=== PATIENT | female | born 1955 | race African-American/Black ===

== ENCOUNTER 2016-07-20 16:57 | Emergency (ER) | payer MEDICARE, SELFPAY ==
[2016-07-20 17:12] VITALS: TEMP 98.1; BMI 35.4
[2016-07-20] MEDS ORDERED: LORAZEPAM 1 MG TAB PO ONE (17:12)
[2016-07-20] MEDS ORDERED: NS 1,000 ML IV ONE (17:12)
--- NOTE | 2016-07-20 17:31 | EDPRACDOC ---
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 THIS WAS WITNESSED BY HER DAUGHTER. PT CONTINUE TO BE POSTICTAL UPON ARRIVAL. UNAWARE OF WHAT MEDICATION THE PATIENT TAKES FOR HER SEIZURE. PT IS UNDER THE CARE OF DR GUIDRY FOR HER SEIZURES. 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 <Von Marc - Last Filed: 07/20/16 18:24> - History of Present Illness Medications/Treatment 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 Associated Signs & Symptoms: Reports: Aura (WEIRD TASTE IS MOUTH AND NUASEA WITH LEFT SIDED FACIAL PAIN) <Krystal Jama - Last Filed: 07/20/16 18:36> - General Information Chief Complaint: Seizure Stated Complaint: SEIZURE Time Seen by Provider: 07/20/16 17:08 Home Medications: Home Medications Folic Acid 1 mg PO DAILY 10/15/15 Cholecalciferol (Vitamin D3) [Vitamin D3] 1,000 unit PO DAILY 12/16/15 Multivitamin [Multivitamins] 1 cap PO DAILY 12/16/15 Metoprolol Tartrate [Lopressor] 12.5 mg PO BID #60 tablet 12/17/15 Omeprazole [Prilosec] 20 mg PO DAILY 02/13/16 Atorvastatin Calcium [Lipitor] 40 mg PO DAILY@1800 #90 tablet 02/15/16 Gabapentin [Neurontin] 600 mg PO TID 05/05/16 Aspirin (Enteric Coated) [Halfprin] 81 mg PO HS 06/18/16 CYANOCOBALAMIN (Vitamin B-12) [Vitamin B-12] 1,000 mcg IM .MONTHLY 06/18/16 Allergies/Adverse Reactions: Allergies Allergy/AdvReac Type Severity Reaction Status Date / Time Penicillins Allergy Intermediate Edema-Gener Verified 07/20/16 17:14 alized bacitracin Allergy Hives* Verified 07/20/16 17:14 zinc Allergy Hives* Verified 07/20/16 17:14 - Treatment Prior to ED Arrival Reported Medications/Treatment 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 <Tanya Reed - Last Filed: 07/20/16 17:34> - Treatment Prior to ED Arrival Reported Medications/Treatment 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 <Von Marc - Last Filed: 07/20/16 18:24> - Treatment Prior to ED Arrival Reported Medications/Treatment 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 <Krystal Jama - Last Filed: 07/20/16 18:36> ED Past Medical History - History Reviewed Yes Nurses notes reviewed and agree except as marked - Patient Medical History Neurological History: Reports: Cerebrovascular Accident, Seizures Cardiac History: Reports: Coronary Artery Disease, Hypertension, Heart Attack, Cardiac Catheterization (angioplasty and may have had some stents placed but not sure about stents), Hypercholesterolemia Respiratory History: Reports: Asthma (RESOLVED) GI/ History: Reports: Gastroesophageal Reflux (Used to be on Nexium but stopped it), Diverticulosis Musculoskeletal History: Reports: Arthritis (RIGHT WRIST AND SHOULDER) Psychological History: Reports: Anxiety. Denies: Depression, Substance Use Disorder Systemic History: Reports: Cancer (head and neck) Surgical History: Reports: Cardiac Catheterization (angioplasty and may have had some stents placed but not sure about stents), Tonsillectomy/Adnoidectomy, Other (recent tonsillectomy due to recurrent cancer, BTl, multiple cysts from UExt). Denies: Hysterectomy Date of Last Radiation Treatment: 12/2014 - Family Medical History Reports: Hypertension (MOTHER, SIBLINGS), Diabetes, Cancer (ovarian, prostate, colon-mother, breast, throat), Cardiac Disorders (MOTHER, BROTHER). Denies: Stroke - Social Medical History Smoking Status: Never smoker Social History: Denies: Substance Use Disorder <Tanya Reed - Last Filed: 07/20/16 17:34> EDM Review of Systems - Review of Systems ROS Negative Except as Marked: Yes All systems reviewed and were negative except as marked <Tanya Reed - Last Filed: 07/20/16 17:34> - Physical Exam Constitutional: Alert Oriented to: Time, Person, Place Last recorded Vital Signs: Last Vital Signs Temp 98.1 F 07/20/16 17:06 Pulse 79 07/20/16 17:06 Resp 20 07/20/16 17:06 BP 167/106 H 07/20/16 17:06 Pulse Ox 95 07/20/16 17:06 Oxygen Pulse Oxygen Saturation 95 O2 Device Oxygen Flow Rate Fraction of Inspired Oxygen ( FIO2) - HEENT Head: Normal ( normocephalic) Eye Exam: Normal (PERRL, EOMI, Sclera white) Oropharynx: Normal (Pharynx:Moist without exudate,Gums-no swelling) Nose: No Symptoms Reported (septum midline) Neck: Normal (FROM, trachea at midline) - Respiratory/Cardiovascular Respiratory: Normal - CTA (BBS clear to auscultation without adventitious sounds ) Cardiovascular: Normal (RRR without murmur, gallop or rub) - GI Auscultation: Normal (NABS) Palpation: Normal (Soft,No rebound or guarding, non distended) Tenderness: Non tender Martell's Sign: Negative Rectal Exam: Deferred - Musculoskeletal Back: Normal (Non-Tender) Extremities: Normal (Normal tone, Pulses 2+ No cyanosis or edema, FROM) - Integumentary Skin: Normal, Warm, Dry Lymphatics: Normal (no adenopathy) - Neurologic Memory Impaired: Normal Motor Function: Normal (Normal tone, Pulses 2+ No cyanosis or edema, FROM) Cranial Nerve: Normal (CN II-X11 intact sensation, strength 5/5) Cerebellar: Normal Mood Description: Normal Perception: Normal <Tanya Reed - Last Filed: 07/20/16 17:34> - Physical Exam Last recorded Vital Signs: Last Vital Signs Temp 98.1 F 07/20/16 17:06 Pulse 76 07/20/16 18:03 Resp 20 07/20/16 17:13 BP 179/91 07/20/16 18:03 Pulse Ox 98 07/20/16 18:03 Oxygen Pulse Oxygen Saturation 98 O2 Device Oxygen Flow Rate Fraction of Inspired Oxygen ( FIO2) <Von Marc - Last Filed: 07/20/16 18:24> - Physical Exam Last recorded Vital Signs: Last Vital Signs Temp 98.1 F 07/20/16 17:06 Pulse 76 07/20/16 18:03 Resp 20 07/20/16 17:13 BP 179/91 01/11/17 18:03 Pulse Ox 98 07/20/16 18:03 Oxygen Pulse Oxygen Saturation 98 O2 Device Oxygen Flow Rate Fraction of Inspired Oxygen ( FIO2) <Krystal Jama - Last Filed: 07/20/16 18:36> - Differential Diagnosis Seizure - EKG EKG #1 EKG Time: 17:19 -: Yes EKG interpreted by me Rate: bpm: 71 [place]: Normal Rhythm: NSR Block: None Hypertrophy: None ST: Normal <Tanya Reed - Last Filed: 07/20/16 17:34> - Results 07/20/16 17:20 07/20/16 17:20 WBC 5.4 xk/uL (3.8-10.8) 07/20/16 17:20 RBC 5.66 xM/uL (4.20-5.40) H 07/20/16 17:20 Hgb 14.1 g/dL (12.0-16.0) 07/20/16 17:20 Hct 42.7 % (36-47) 07/20/16 17:20 MCV 75 fL (81-99) L 07/20/16 17:20 MCH 24.8 pg (27-32) L 07/20/16 17:20 MCHC 33.0 g/dl (33-36) 07/20/16 17:20 RDW 16.1 % (11.5-14.5) H 07/20/16 17:20 Plt Count 294 xk/uL (130-400) 07/20/16 17:20 MPV 7.6 fL (7.4-10.4) 07/20/16 17:20 Neut % (Auto) 50.1 % (45-76) 07/20/16 17:20 Lymph % (Auto) 37.6 % (17-44) 07/20/16 17:20 [place] % (Auto) 6.7 % (3-10) 07/20/16 17:20 Eos % (Auto) 4.3 % (0-5) 07/20/16 17:20 Baso % (Auto) 1.3 % (0-2) 07/20/16 17:20 Absolute Neuts (auto) 2.70 xk/uL (1.7-8.2) 07/20/16 17:20 Absolute Lymphs (auto) 2.00 xk/uL (0.65-4.75) 07/20/16 17:20 PT 10.4 SEC (9.2-11.2) 07/20/16 17:20 INR 1.0 07/20/16 17:20 APTT 21.7 SEC (22-35) L 07/20/16 17:20 Sodium 140 mEq/L (137-146) 07/20/16 17:20 Potassium 4.0 mEq/L (3.5-5.1) 07/20/16 17:20 Chloride 103 mEq/L (98-107) 07/20/16 17:20 Carbon Dioxide 29 mMOL/L (22-33) 07/20/16 17:20 Anion Gap 12 mEq/L (8-16) 07/20/16 17:20 BUN 10 MG/DL (7-17) 07/20/16 17:20 Creatinine 0.70 MG/DL (0.52-1.04) 07/20/16 17:20 Estimated GFR (MDRD) > 60 mL/min (>=60) 07/20/16 17:20 Glucose 99 MG/DL (70-99) 07/20/16 17:20 Calculated Osmolality 268 MOs/Kg (270-290) L 07/20/16 17:20 Calcium 9.6 MG/DL (8.4-10.2) 07/20/16 17:20 Total Bilirubin 0.9 MG/DL (0.2-1.3) 07/20/16 17:20 AST 24 IU/L (14-36) 07/20/16 17:20 ALT 33 IU/L (9-52) 07/20/16 17:20 Alkaline Phosphatase 130 IU/L (38-126) H 07/20/16 17:20 Creatine Kinase 42 IU/L (30-134) 07/20/16 17:20 Troponin I < 0.01 ng/mL (<.04) 07/20/16 17:20 Baa-S-Jtiqdcfobdx Pept 35 pg/mL (0-900) 07/20/16 17:20 Total Protein 8.0 G/DL (6.3-8.2) 07/20/16 17:20 Albumin 4.0 G/DL (3.5-5.0) 07/20/16 17:20 Urine Color Pale yellow 07/20/16 17:50 Urine Clarity Clear 07/20/16 17:50 Urine pH 6.0 (5.0-8.0) 07/20/16 17:50 Ur Specific [place] 1.010 (1.003-1.035) 07/20/16 17:50 Urine Protein Neg (NEG/TRACE) 07/20/16 17:50 Urine Glucose (UA) Neg (NEGATIVE) 07/20/16 17:50 Urine Ketones Neg (NEGATIVE) 07/20/16 17:50 Urine Occult Blood Neg (NEG/TRACE) 07/20/16 17:50 Urine Nitrite Neg (NEGATIVE) 07/20/16 17:50 Urine Bilirubin Neg (NEGATIVE) 07/20/16 17:50 Urine Urobilinogen <2.0 MG/DL (0-1) 07/20/16 17:50 Ur Leukocyte Esterase Neg (NEGATIVE) 07/20/16 17:50 Urine RBC 0-2 (0-5) 07/20/16 17:50 Urine WBC 0-2 (0-5) 07/20/16 17:50 Ur Epithelial Cells 1+ 07/20/16 17:50 Urine Bacteria Few (NEG/FEW) 07/20/16 17:50 Urine Mucus Occ (NEG/OCC) 07/20/16 17:50 Lab Results 07/20/16 07/20/16 07/20/16 17:50 17:20 17:20 WBC 5.4 RBC 5.66 H Hgb 14.1 Hct 42.7 MCV 75 L MCH 24.8 L MCHC 33.0 RDW 16.1 H Plt Count 294 MPV 7.6 Neut % (Auto) 50.1 Lymph % (Auto) 37.6 [place] % (Auto) 6.7 Eos % (Auto) 4.3 Baso % (Auto) 1.3 Absolute Neuts (auto) 2.70 Absolute Lymphs (auto) 2.00 PT 10.4 INR 1.0 APTT 21.7 L Sodium Potassium Chloride Carbon Dioxide Anion Gap BUN Creatinine Estimated GFR (MDRD) Glucose Calculated Osmolality Calcium Total Bilirubin AST ALT Alkaline Phosphatase Creatine Kinase Troponin I Cli-Y-Toatphaypua Pept Total Protein Albumin Urine Color Pale yellow Urine Clarity Clear Urine pH 6.0 Ur Specific [place] 1.010 Urine Protein Neg Urine Glucose (UA) Neg Urine Ketones Neg Urine Occult Blood Neg Urine Nitrite Neg Urine Bilirubin Neg Urine Urobilinogen <2.0 Ur Leukocyte Esterase Neg Urine RBC 0-2 Urine WBC 0-2 Ur Epithelial Cells 1+ Urine Bacteria Few Urine Mucus Occ 07/20/16 17:20 WBC RBC Hgb Hct MCV MCH MCHC RDW Plt Count MPV Neut % (Auto) Lymph % (Auto) [place] % (Auto) Eos % (Auto) Baso % (Auto) Absolute Neuts (auto) Absolute Lymphs (auto) PT INR APTT Sodium 140 Potassium 4.0 Chloride 103 Carbon Dioxide 29 Anion Gap 12 BUN 10 Creatinine 0.70 Estimated GFR (MDRD) > 60 Glucose 99 Calculated Osmolality 268 L Calcium 9.6 Total Bilirubin 0.9 AST 24 ALT 33 Alkaline Phosphatase 130 H Creatine Kinase 42 Troponin I < 0.01 Mth-F-Eccfvbdeqhf Pept 35 Total Protein 8.0 Albumin 4.0 Urine Color Urine Clarity Urine pH Ur Specific [place] Urine Protein Urine Glucose (UA) Urine Ketones Urine Occult Blood Urine Nitrite Urine Bilirubin Urine Urobilinogen Ur Leukocyte Esterase Urine RBC Urine WBC Ur Epithelial Cells Urine Bacteria Urine Mucus <Von Marc - Last Filed: 07/20/16 18:24> - Re-evaluation Re-evaluation 1 Re-evaluation Time: 18:33 (PT A&OX3 STATES FEELING BETTER, IS ANSWERING QUESTIONS APPROPRIATELY. ) - Results 07/20/16 17:20 07/20/16 17:20 WBC 5.4 xk/uL (3.8-10.8) 07/20/16 17:20 RBC 5.66 xM/uL (4.20-5.40) H 07/20/16 17:20 Hgb 14.1 g/dL (12.0-16.0) 07/20/16 17:20 Hct 42.7 % (36-47) 07/20/16 17:20 MCV 75 fL (81-99) L 07/20/16 17:20 MCH 24.8 pg (27-32) L 07/20/16 17:20 MCHC 33.0 g/dl (33-36) 07/20/16 17:20 RDW 16.1 % (11.5-14.5) H 07/20/16 17:20 Plt Count 294 xk/uL (130-400) 07/20/16 17:20 MPV 7.6 fL (7.4-10.4) 07/20/16 17:20 Neut % (Auto) 50.1 % (45-76) 07/20/16 17:20 Lymph % (Auto) 37.6 % (17-44) 07/20/16 17:20 [place] % (Auto) 6.7 % (3-10) 07/20/16 17:20 Eos % (Auto) 4.3 % (0-5) 07/20/16 17:20 Baso % (Auto) 1.3 % (0-2) 07/20/16 17:20 Absolute Neuts (auto) 2.70 xk/uL (1.7-8.2) 07/20/16 17:20 Absolute Lymphs (auto) 2.00 xk/uL (0.65-4.75) 07/20/16 17:20 PT 10.4 SEC (9.2-11.2) 07/20/16 17:20 INR 1.0 07/20/16 17:20 APTT 21.7 SEC (22-35) L 07/20/16 17:20 Sodium 140 mEq/L (137-146) 07/20/16 17:20 Potassium 4.0 mEq/L (3.5-5.1) 07/20/16 17:20 Chloride 103 mEq/L (98-107) 07/20/16 17:20 Carbon Dioxide 29 mMOL/L (22-33) 07/20/16 17:20 Anion Gap 12 mEq/L (8-16) 07/20/16 17:20 BUN 10 MG/DL (7-17) 07/20/16 17:20 Creatinine 0.70 MG/DL (0.52-1.04) 07/20/16 17:20 Estimated GFR (MDRD) > 60 mL/min (>=60) 07/20/16 17:20 Glucose 99 MG/DL (70-99) 07/20/16 17:20 Calculated Osmolality 268 MOs/Kg (270-290) L 07/20/16 17:20 Calcium 9.6 MG/DL (8.4-10.2) 07/20/16 17:20 Total Bilirubin 0.9 MG/DL (0.2-1.3) 07/20/16 17:20 AST 24 IU/L (14-36) 07/20/16 17:20 ALT 33 IU/L (9-52) 07/20/16 17:20 Alkaline Phosphatase 130 IU/L (38-126) H 07/20/16 17:20 Creatine Kinase 42 IU/L (30-134) 07/20/16 17:20 Troponin I < 0.01 ng/mL (<.04) 07/20/16 17:20 Asq-Q-Swsrkaxqzbu Pept 35 pg/mL (0-900) 07/20/16 17:20 Total Protein 8.0 G/DL (6.3-8.2) 07/20/16 17:20 Albumin 4.0 G/DL (3.5-5.0) 07/20/16 17:20 Urine Color Pale yellow 07/20/16 17:50 Urine Clarity Clear 07/20/16 17:50 Urine pH 6.0 (5.0-8.0) 07/20/16 17:50 Ur Specific [place] 1.010 (1.003-1.035) 07/20/16 17:50 Urine Protein Neg (NEG/TRACE) 07/20/16 17:50 Urine Glucose (UA) Neg (NEGATIVE) 07/20/16 17:50 Urine Ketones Neg (NEGATIVE) 07/20/16 17:50 Urine Occult Blood Neg (NEG/TRACE) 07/20/16 17:50 Urine Nitrite Neg (NEGATIVE) 07/20/16 17:50 Urine Bilirubin Neg (NEGATIVE) 07/20/16 17:50 Urine Urobilinogen <2.0 MG/DL (0-1) 07/20/16 17:50 Ur Leukocyte Esterase Neg (NEGATIVE) 07/20/16 17:50 Urine RBC 0-2 (0-5) 07/20/16 17:50 Urine WBC 0-2 (0-5) 07/20/16 17:50 Ur Epithelial Cells 1+ 07/20/16 17:50 Urine Bacteria Few (NEG/FEW) 07/20/16 17:50 Urine Mucus Occ (NEG/OCC) 07/20/16 17:50 Lab Results 07/20/16 07/20/16 07/20/16 17:50 17:20 17:20 WBC 5.4 RBC 5.66 H Hgb 14.1 Hct 42.7 MCV 75 L MCH 24.8 L MCHC 33.0 RDW 16.1 H Plt Count 294 MPV 7.6 Neut % (Auto) 50.1 Lymph % (Auto) 37.6 [place] % (Auto) 6.7 Eos % (Auto) 4.3 Baso % (Auto) 1.3 Absolute Neuts (auto) 2.70 Absolute Lymphs (auto) 2.00 PT 10.4 INR 1.0 APTT 21.7 L Sodium Potassium Chloride Carbon Dioxide Anion Gap BUN Creatinine Estimated GFR (MDRD) Glucose Calculated Osmolality Calcium Total Bilirubin AST ALT Alkaline Phosphatase Creatine Kinase Troponin I Sup-D-Asqtqrvwdzk Pept Total Protein Albumin Urine Color Pale yellow Urine Clarity Clear Urine pH 6.0 Ur Specific [place] 1.010 Urine Protein Neg Urine Glucose (UA) Neg Urine Ketones Neg Urine Occult Blood Neg Urine Nitrite Neg Urine Bilirubin Neg Urine Urobilinogen <2.0 Ur Leukocyte Esterase Neg Urine RBC 0-2 Urine WBC 0-2 Ur Epithelial Cells 1+ Urine Bacteria Few Urine Mucus Occ 07/20/16 17:20 WBC RBC Hgb Hct MCV MCH MCHC RDW Plt Count MPV Neut % (Auto) Lymph % (Auto) [place] % (Auto) Eos % (Auto) Baso % (Auto) Absolute Neuts (auto) Absolute Lymphs (auto) PT INR APTT Sodium 140 Potassium 4.0 Chloride 103 Carbon Dioxide 29 Anion Gap 12 BUN 10 Creatinine 0.70 Estimated GFR (MDRD) > 60 Glucose 99 Calculated Osmolality 268 L Calcium 9.6 Total Bilirubin 0.9 AST 24 ALT 33 Alkaline Phosphatase 130 H Creatine Kinase 42 Troponin I < 0.01 Wxo-Z-Wjidcpzexvg Pept 35 Total Protein 8.0 Albumin 4.0 Urine Color Urine Clarity Urine pH Ur Specific [place] Urine Protein Urine Glucose (UA) Urine Ketones Urine Occult Blood Urine Nitrite Urine Bilirubin Urine Urobilinogen Ur Leukocyte Esterase Urine RBC Urine WBC Ur Epithelial Cells Urine Bacteria Urine Mucus - Diagnostic Imaging CT HEAD Image interpreted by: Radiologist NEGATIVE CXR Image interpreted by: Radiologist IMPRESSION: No active cardiopulmonary disease. - Additional Information No changes in clinical status or new information from previous documentation. Vital Signs: Temp:98.1 F HR: 76 BP: 179/91 RR: 20 Pox: 98%. Continue with current plan. General: Pleasant [male female] No acute distress. Neuro: Alert Oriented, calm and cooperative HEENT: Normocephalic atraumatic. Sclerae nonicteric. Extraocular movements intact. Oral mucosa pink and moist. Neck: Supple. Nontender. Good range of motion. No masses. Trachea is midline. No cervical adenopathy. Lungs: Clear to auscultation. No rhonchi or wheezing. Heart: Regular rate and rhythm. No murmur. Abdomen: Soft, nontender, nondistended. No hepatosplenomegaly. No abdominal wall defects or masses. No guarding or rebound. Extremities: no cyanosis clubbing or edema. No palpable deformities. Skin: Warm and dry, no rashes <Krystal Jama - Last Filed: 07/20/16 18:36> - Departure Disposition: Home Education/Counseling Given To: Patient Education/Counseling Given Regarding: Diagnosis, Treatment, Prognosis, Follow Up <Tanya Reed - Last Filed: 07/20/16 17:34> Decision Time to Discharge: 18:24 - Departure Disposition: Home <Von Marc - Last Filed: 07/20/16 18:24> <Krystal Jama - Last Filed: 07/20/16 18:36> - Departure Condition: Stable Final Diagnosis: Tonic-clonic seizure Instructions: Seizures Referrals: Becky Reyes MD [Primary Care Provider] - One Week Archie Guidry MD [Staff Physician] - One Week Additional Instructions: KEEP APPOINTMENT WITH DR. GUIDRY TOMORROW. RETURN FOR WORSE OR DIFFERENT SYMPTOMS. TAKE ATIVAN WHEN YOU GET THE AURA PRIOR TO HAVING SEIZURE.
[2016-07-20 17:42] LABS: AUTOMATED BASOPHIL 1.3 % (0-2); AUTOMATED EOSINOPHIL 4.3 % (0-5); AUTOMATED LYMPH 37.6 % (17-44); AUTOMATED MONOCYTE 6.7 % (3-10); AUTOMATED NEUTROPHIL 50.1 % (45-76); MPV 7.6 fL (7.4-10.4)
--- NOTE | 2016-07-20 17:45 | DIRPT ---
CLINICAL DATA: Seizure today. Left-sided headache. EXAM: CT HEAD WITHOUT CONTRAST TECHNIQUE: Contiguous axial images were obtained from the base of the skull through the vertex without intravenous contrast. COMPARISON: None. FINDINGS: Brain: No evidence of acute infarction, hemorrhage, extra-axial collection, ventriculomegaly, or mass effect. Vascular: No hyperdense vessel or unexpected calcification. Skull: Negative for fracture or focal lesion. Sinuses/Orbits: No acute findings. Other: None. IMPRESSION: Negative noncontrast head CT. Electronically Signed By: Bull Palmer M.D. On: 07/20/2016 17:42
[2016-07-20 17:50] LABS: PARTIAL THROMB. TIME 21.7 SEC (22-35)
[2016-07-20 17:57] LABS: BLOOD UREA NITROGEN 10 MG/DL (7-17); CALCIUM 9.6 MG/DL (8.4-10.2); CALCULATED OSMOLALITY 268 MOs/Kg (270-290); CHLORIDE 103 mEq/L (98-107); CPK TOTAL WITH POSSIBLE MB 42 IU/L (30-134); GLUCOSE 99 MG/DL (70-99); SODIUM LEVEL 140 mEq/L (137-146)
--- NOTE | 2016-07-20 18:08 | DIRPT ---
CLINICAL DATA: Witnessed seizure. Postictal. EXAM: CHEST 2 VIEW COMPARISON: 06/18/2016 and earlier FINDINGS: The heart size and mediastinal contours are within normal limits. Both lungs are clear. The visualized skeletal structures are unremarkable. IMPRESSION: No active cardiopulmonary disease. Electronically Signed By: Oksana Lopez M.D. On: 07/20/2016 18:05
[2016-07-20 18:17] LABS: LEUKOCYTES/URINE NEG (NEGATIVE); NITRITE/URINE NEG (NEGATIVE); RBC/URINE 0-2 (0-5); URINE OCCULT BLOOD NEG (NEG/TRACE); WBC/URINE 0-2 (0-5)
[2016-07-20 18:41] LABS: ALL NEG? YES; MDMA* NEG (NEGATIVE); METHAMPHETAMINES NEG (NEGATIVE); OXYCODONE NEG (NEGATIVE)
[2016-07-20 18:47] VITALS: BP 148/86; PULSE 80
== END 2016-07-20 18:45 | disposition home or self-care (01) ==
LOC: ED 16:57
DX: G40.89 Other seizures (principal)
CPT/HCPCS: 36415; 70450; 71020; 80053; 80307; 81001; 82550; 83880; 84484; 85025; 85610; 85730; 93005; 96360; 99284; A9270; J3490

== ENCOUNTER 2016-07-20 21:24 | Inpatient (IN) | payer MEDICARE, SELFPAY ==
--- NOTE | 2016-07-20 22:26 | EDPRACDOC ---
ED Seizure HPI - General Information Chief Complaint: Seizure Stated Complaint: SEIZURE Time Seen by Provider: 07/20/16 22:13 Mode Of Arrival: Wheelchair Home Medications: Home Medications Folic Acid 1 mg PO DAILY 10/15/15 Cholecalciferol (Vitamin D3) [Vitamin D3] 1,000 unit PO DAILY 12/16/15 Multivitamin [Multivitamins] 1 cap PO DAILY 12/16/15 Metoprolol Tartrate [Lopressor] 12.5 mg PO BID #60 tablet 12/17/15 Omeprazole [Prilosec] 20 mg PO DAILY 02/13/16 Atorvastatin Calcium [Lipitor] 40 mg PO DAILY@1800 #90 tablet 02/15/16 Gabapentin [Neurontin] 600 mg PO TID 05/05/16 Aspirin (Enteric Coated) [Halfprin] 81 mg PO HS 06/18/16 CYANOCOBALAMIN (Vitamin B-12) [Vitamin B-12] 1,000 mcg IM .MONTHLY 06/18/16 Allergies/Adverse Reactions: Allergies Allergy/AdvReac Type Severity Reaction Status Date / Time Penicillins Allergy Intermediate Edema-Gener Verified 07/20/16 17:14 alized bacitracin Allergy Hives* Verified 07/20/16 17:14 zinc Allergy Hives* Verified 07/20/16 17:14 - History of Present Illness Onset: 30 mins HPI: PATIENT HAD A SPELL/SEIZURE EARLIER IS TODAY THIS DESCRIBED STIFFENING UP HER RIGHT LIP OCCURRING UP OF FOLLOWED BY A PERIOD OF CONFUSION AND AMNESIA. SEEN EMERGED DEPARTMENT FOR WORKUP IS NEGATIVE TO DISCHARGE HOME AFTER BEING HOME SHE HAD ANOTHER SPELL ACT LIKE THIS. THEREFORE FAMILY IS BROUGHT PATIENT BACK TO THE EMERGENCY DEPARTMENT. HER LAST EPISODE WAS ON SHE IS UNDER THE CARE DR. CHOLO VASQUEZ IN FACT HAS AN APPOINTMENT TOMORROW FOR THIS. ATIVAN P.R.N. WAS ADDED TO HER REGIMEN TODAY. THIS SEEMS THOUGH PATIENT HAD ATIVAN PRIOR TO ARRIVAL EMERGENCY DEPARTMENT TODAY. EEG IN WAS WITHIN NORMAL LIMITS. MULTIPLE CT SCANS OF THE HEAD INCLUDING TODAY WERE NORMAL PATIENT HAD MRI HEAD WHICH WAS NORMAL WELL. Witnessed: YES Postictal: Yes Episodes: Reports: multiple episodes today Seizure Type: Reports: Twitching - [place] Coma scale Coma Scale Eye Opening: Spontaneous Coma Scale Motor: Obeys Commands Coma Scale Verbal: Confused Coma Scale Total: 14 ED Past Medical History - History Reviewed Yes Nurses notes reviewed and agree except as marked - Patient Medical History Neurological History: Reports: Cerebrovascular Accident, Seizures Cardiac History: Reports: Coronary Artery Disease, Hypertension, Heart Attack, Cardiac Catheterization (angioplasty and may have had some stents placed but not sure about stents), Hypercholesterolemia Respiratory History: Reports: Asthma (RESOLVED) GI/ History: Reports: Gastroesophageal Reflux (Used to be on Nexium but stopped it), Diverticulosis Musculoskeletal History: Reports: Arthritis (RIGHT WRIST AND SHOULDER) Psychological History: Reports: Anxiety. Denies: Depression, Substance Use Disorder Systemic History: Reports: Cancer (head and neck) Surgical History: Reports: Cardiac Catheterization (angioplasty and may have had some stents placed but not sure about stents), Tonsillectomy/Adnoidectomy, Other (recent tonsillectomy due to recurrent cancer, BTl, multiple cysts from UExt). Denies: Hysterectomy Date of Last Radiation Treatment: 12/2014 - Family Medical History Reports: Hypertension (MOTHER, SIBLINGS), Diabetes, Cancer (ovarian, prostate, colon-mother, breast, throat), Cardiac Disorders (MOTHER, BROTHER). Denies: Stroke - Social Medical History Smoking Status: Never smoker Social History: Denies: Substance Use Disorder EDM Review of Systems - Review of Systems ROS Negative Except as Marked: Yes All systems reviewed and were negative except as marked - Physical Exam Constitutional: Somnolent (BUT EASILY AROUSABLE.) Oriented to: Time, Person, Place Last recorded Vital Signs: Last Vital Signs Temp 98.1 F 07/20/16 21:30 Pulse 69 07/20/16 21:59 Resp 22 07/20/16 21:59 BP 143/86 07/20/16 21:59 Pulse Ox 91 07/20/16 21:59 Oxygen Pulse Oxygen Saturation 91 O2 Device Room Air Oxygen Flow Rate Fraction of Inspired Oxygen ( FIO2) - HEENT Head: Normal ( normocephalic) Eye Exam: Normal (PERRL, EOMI, Sclera white), Other (RIGHT UPPER LIP IS SWOLLEN. ) Oropharynx: Normal (Pharynx:Moist without exudate,Gums-no swelling) Nose: No Symptoms Reported (septum midline) Neck: Normal (FROM, trachea at midline) - Respiratory/Cardiovascular Respiratory: Normal - CTA (BBS clear to auscultation without adventitious sounds ) Cardiovascular: Normal (RRR without murmur, gallop or rub) - GI Auscultation: Normal (NABS) Palpation: Normal (Soft,No rebound or guarding, non distended) Tenderness: Non tender Martell's Sign: Negative - Musculoskeletal Back: Normal (Non-Tender) Extremities: Normal (Normal tone, Pulses 2+ No cyanosis or edema, FROM) - Integumentary Skin: Normal, Warm, Dry Lymphatics: Normal (no adenopathy) - Neurologic Memory Impaired: Normal Motor Function: Normal (Normal tone, Pulses 2+ No cyanosis or edema, FROM) Cranial Nerve: Normal (CN II-X11 intact sensation, strength 5/5) Cerebellar: Normal Mood Description: Normal Perception: Normal - Re-evaluation Re-evaluation 3 Re-evaluation Time: 02:26 PATIENT WAS EATING ICE CREAM. HAD EPISODE WHERE SHE HAD A BLANK SPARES STAIR THEN FACE TIGHTENED BODY TIGHTENED AND STIFFENED NO CLONIC ACTIVITY BUT HER LIP DID CURL UP. THIS LASTED APPROXIMATELY 30-60 SECONDS. BEFORE RESOLVED SPONTANEOUSLY AFTERWARDS THE PATIENT WAS AWAKE AND WOULD FOLLOW COMMANDS BUT APPEAR TO BE CONFUSED AND HAVING EXPRESSIVE APHASIA. APPEARS POSTICTAL AT THIS TIME. THIS APPEARS TO BE THE 4TH OR 5TH EPISODE OF GENERALIZED TONIC SEIZURES THAT SHE HAS HAD TODAY. WE WILL START HER ON KEPPRA AT THIS TIME.. CENTRAL MONITORING REVIEWED, NO DYSRHYTHMIA NOTED, JUST MILD INC IN HR AND CHANGE IN BASELINE. Re-evaluation 2 Re-evaluation Time: 01:45 AMBULATED HALLWAYS, MILD LEFT SIDED WEAKNESS NOT CAUSING SIGNIF ATAXIA. - Additional Information PROBABLE SEIZURE DISORDER, HAD ANOTHER SEIZURE, HAS HAD MULTIPLE EPISODES TODAY. APPEARS TO BE COMING BACK TO NEAR BASELINE EXCEPT SOME PERSISTENT MILD LEFT SIDED WEAKNESS. SIMILAR PATTERN PRIOR ADMISSIONS. 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
[2016-07-21] MEDS ORDERED: NS IV ONE (02:43)
[2016-07-21] MEDS ORDERED: LEVETIRACETAM IV ONE (02:43)
--- NOTE | 2016-07-21 06:50 | HISTPHYS ---
- Chief Complaint weakness, altered mental status - History of Present Illness PRIMARY CARE PROVIDER: Dr. Reyes HPI: The patient is a 60 yo woman who presented for a second emergency department visit overnight with left sided weakness and other issues. Summary: Within the last 24 hours, the patient has not been well. She was brought to the emergency department 07/20/16 in the afternoon, was evaluated and thought to have a seizure, was given prescription with plan for her to follow up this morning with the neurologist, Dr. Guidry. She went home and had altered mental status and other symptoms, so she returned back to the emergency department overnight on 07/20/16 for further evaluation. Hospitalist service has been asked to evaluate the patient for admission this morning. The patient is somnolent, so her daughter provides most of the history. In the afternoon 07/20/16, the patient was not acting right. She was not focusing , and had droop on one side of her face, and was just staring into space, not interacting. The patient was brought to the emergency department and discharged as noted above. The patient was then at home. Around 8:30 pm she ate a salad and then suddenly she was standing up in the kitchen and did not look right. She leaned over toward the garbage can, and her daughter thought maybe she had nausea and was going to vomit in the trash can. Instead, the patient just kept leaning forward and was about to fall completely forward onto the floor, but her daughter caught her. Her right side of her mouth seemed to droop - about 1 minute or so. She was not talking. She was not focusing her eyes on anything, like a blank stare. She may have had a bit of brief drooling. She was not interacting. The family placed her onto the chair, and she was leaning toward the right side. She did not lift her RIGHT arm all the way.Only one of her eyes were blinking; just her left one was blinking. She was very sleepy, and the patient reports she was very tired. Then later she was more awake. She was clearly not herself, so the patient was taken back to the emergency department. While the patient was in the in the waiting room, she had another episode. She was looking at her daughter but was not saying anything. She had very mild facial droop, and she was staring but not interacting. Then she was licking her lips. She became somnolent again; the episode resolved but she was still sleepy. Then she had another episode in the emergency department bed. She had gotten up and walked, but on the way back she stumbled when she tried to walk. She was then eating sherbert and suddenly just stopped, wasn't talking or interactive again. She had facial droop again and she was leaning to the right side. She fell asleep afterward. Staff had witnessed these events. The daughter noted that here in the emergency department the patient is disoriented and doesn't know what the date is. She could not understand what to do for the commands. She said she felt tired. Onset: First episode of symptoms 07/20/16 in the afternoon. Subsequent episodes began 07/20/16 around 8:30 pm. Duration: intermittent. Location: generalized symptoms. Character: altered mental status/disoriented with facial droop, difficulty walking, and leaning to one side. Alleviated by: Nothing. Exacerbated by: Nothing. Associated Symptoms: Altered mental status with staring spells, during which she was not speaking or responding to her family member. Facial droop. Almost fell over as she leaned toward the trash can. Difficulty walking with leaning to one side (probably the right side). [place] lips. Left arm weakness per patient. Daughter saw weakness in right arm. Somnolence. Disorientation. One eye blinking. No numbness. Fatigue. No coughing or choking on food. No chest pain. No fever or chills. Mild shortness of breath. No wheezing. After episodes, the patient seemed very tired and was sleeping. Other symptoms as noted above. Treatments: none at home except usual medications. Reports of events from the emergency staff included: 07/21/16 nurse report from early this morning: nurse noted that patient ambulated in [place] without difficulty and went back to the room, but then shortly thereafter the patient's grandson called staff into room and stated "something is wrong with my grandma". Nurse check the patient's vital signs, which were normal. She observed the patient to be alert and clenching an emesis bag. No shaking observed, and patient family denies patient was shaking. Patient will not speak to staff. 07/21/16 Physician reports from early this morning: that patient appears to come back to baseline after each event, except for some mild left sided weakness. Reports he witnessed event early this morning when she was eating ice cream. He describes the patient having a blank stare and then her "face tightened, body tightened, and stiffened, no clonic activity but her lip did curl up. This lasted approximately 30-60 seconds." He reported that afterward the patient was awake and could follow commands but appeared to be "confused and having expressive aphasia. Appears postictal at this time." - Medical History Cardiac History: Reports: Coronary Artery Disease, Hypertension, Heart Attack, Cardiac Catheterization (angioplasty and may have had some stents placed), Hypercholesterolemia Respiratory History: Reports: Asthma (RESOLVED) GI/ History: Reports: Gastroesophageal Reflux, Diverticulosis (and colonoscopy with polyp removed 2015) Musculoskeletal History: Reports: Arthritis (RIGHT WRIST AND SHOULDER) Systemic History: Reports: Cancer (head and neck), Anemia (B12 deficiency), Other (Dry eyes.) Neurological History: Reports: Cerebrovascular Accident (vs TIA), Seizures, Other (left facial weakness.) Psychological History: Reports: Anxiety OTHER HISTORY: ECHOCARDIOGRAM 02/14/2016: EF between 65 - 70 % FINDINGS ------- Procedure:2D images, m-mode, color and spectral Doppler were obtained and reviewed. ECG rhythm:Sinus rhythm. Study quality:This was a technically good study. Left Ventricle:The left ventricular size and wall thickness are normal. Normal systolic function, no segmental abnormality, EF between 65 - 70 %. The diastolic filling pattern indicates impaired relaxation. Right Ventricle:The right ventricle is normal in size and function. Left Atrium:Left atrium is mildly dilated by volume. Right Atrium:The right atrium is normal in size and function. Septum normal. Good quality "bubble study" is negative. ASD/VSD:Interatrial and interventricular septum intact. Multiple injections made in different views with excellent opacification of right heart chambers, no evidence of any potential right to left shunting (PFO). Aortic Valve:The aortic valve is trileaflet, and appears structurally normal. No aortic stenosis or regurgitation. Mitral Valve:Normal appearing mitral valve. No vegetation. Trace mitral regurgitation is present. Tricuspid Valve:The tricuspid valve appears structurally normal. Mild tricuspid regurgitation present. Normal pulm artery pressure suggested. Pulmonic Valve:The pulmonic valve is normal. There is no pulmonic regurgitation present. Aorta:The aortic root, ascending aorta and aortic arch appear normal. IVC:Normal inferior vena cava with normal inspiratory collapse. Pericardium:There is no pericardial effusion. CONCLUSIONS normal 2D /Doppler echocardiographic study normal chamber sizes and biventricular function no valvular heart disease, vegetation, or mass negative "bubble study" no intracardiac source for emboli identified. ONCOLOGY HISTORY: From H/O Notes, Dr. 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 Diagnosed by biopsy performed by Dr. Garcia 09/2014. After biopsy patient had postoperative weakness of the left facial nerve. 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 There was direct extension into 1 of 3 lymph nodes but no lymphovascular invasion. This was sent for a 2nd opinion to the pathologist at [facility] and they concurred with this diagnosis. Completely resected but with direct extension into 1 node. T1 N0 M0, stage I - Surgical History Reports: Cardiac Catheterization (angioplasty and may have had some stents placed), Tonsillectomy/Adnoidectomy (Other: LEFT PAROTIDECTOMY 09/2014), Other ( Tonsillectomy due to recurrent cancer, BTl, multiple cysts from upper extr) - Medictions/Allergies Allergies Penicillins Allergy (Intermediate, Verified 07/20/16 17:14) Edema-Generalized bacitracin Allergy (Verified 07/20/16 17:14) Hives* swelled up turned red zinc Allergy (Verified 07/20/16 17:14) Hives* Current Medication List: Reviewed Home Medications Folic Acid 1 mg PO DAILY 10/15/15 Cholecalciferol (Vitamin D3) [Vitamin D3] 1,000 unit PO DAILY 12/16/15 Multivitamin [Multivitamins] 1 cap PO DAILY 12/16/15 Metoprolol Tartrate [Lopressor] 12.5 mg PO BID #60 tablet 12/17/15 Omeprazole [Prilosec] 20 mg PO DAILY 02/13/16 Atorvastatin Calcium [Lipitor] 40 mg PO DAILY@1800 #90 tablet 02/15/16 Gabapentin [Neurontin] 600 mg PO TID 05/05/16 Aspirin (Enteric Coated) [Halfprin] 81 mg PO HS 12/10/16 CYANOCOBALAMIN (Vitamin B-12) [Vitamin B-12] 1,000 mcg IM .MONTHLY 06/18/16 - Family History Reports: Hypertension (MOTHER, SIBLINGS), Diabetes, Cancer (ovarian, prostate, colon-mother, breast, throat), Cardiac Disorders (MOTHER, BROTHER). Denies: Stroke - Social History Smoking Status: Never smoker Social History: Denies: Alcohol Use, Substance Use Disorder - Review of Systems GENERAL: No Fever, chills, or diaphoresis. Positive for fatigue/malaise. HEENT: No nasal discharge or bleeding. No throat pain or swelling. No eye pain or eye redness. RESPIRATORY: No cough, wheezing. Mild shortness of breath. CARDIOVASCULAR: No chest pain or palpitations. GI: No abdominal pain, nausea, vomiting, diarrhea, constipation, or bloody stool. NEUROLOGICAL: See HPI. INTEGUMENT: no rashes, itching, or lesions. LYMPHATIC SYSTEM: no lymph node swelling or pain. MUSCULOSKELETAL: no new pain or joint swelling. GENITOURINARY: No dysuria or hematuria. ENDOCRINE: No polyuria or polydipsia. HEME: No chronic anemia, bleeding, or easy bruising. - Physical Exam Vital Signs: Initial Vitals Temperature 98.1 F 07/20/16 21:30 Pulse Rate 77 07/20/16 21:30 Respiratory Rate 25 H 07/20/16 21:30 Blood Pressure 146/90 07/20/16 21:30 Pulse Oxygen Saturation 92 07/20/16 21:30 - Other Exam Other Exam Findings: GENERAL: Ill-appearing, well nourished, without severe distress. HEENT: Normocephalic, atraumatic; pupils equal and round. Nares patent, without discharge or bleeding. No oropharyngeal lesions or erythema. Mucous membranes are dry. NECK: is supple, no masses, trachea midline. RESPIRATORY: Clear to auscultation bilaterally. Chest wall movements are symmetric. No use of accessory muscles to breathe. No wheezing, rales, rhonchi. CARDIOVASCULAR: Normal S1, S2. No rubs, or gallops. PMI non-displaced. Carotids : no carotid bruits. No bradycardia or tachycardia. DP pulses 2+ bilaterally. GI: soft, nontender, non-distended, normal active bowel sounds. No hepatosplenomegaly. INTEGUMENT: Clean, dry, and intact. No rashes. MUSCULOSKELETAL: Moving all extremities. No cyanosis. No clubbing. Edema: none bilaterally. NEUROLOGICAL: Cranial nerves 2-12 grossly intact, with slight hint of facial droop. Motor 4/5 throughout with left upper extremity handgrip slightly decreased compared to right. Reflexes: 2+ bilaterally. Babinski: toes downgoing bilaterally. Intact Finger to nose. Sensory grossly intact to light touch. Intact rapid alternating movements bilaterally. No pronator drift. PSYCHIATRIC: Oriented. Normal and appropriate affect. Somnolent for most of exam , but does awaken to voice and able to follow all commands. Was able to answer questions. LYMPHATIC: No cervical lymphadenopathy. No supraclavicular lymphadenopathy. - Lab Results Laboratory Tests Note: patient had been seen and evaluated in the emergency department previously and discharged from the emergency department. Please see the lab results from that visit for details. Will order labs for this admission also. Pertinent Labs from earlier visit, 07/20/16: Chemistry: BUN 10 Cr 0.7 Glucose 99 T bili 0.9 AST 24 ALT 33 AP 130 Total Protein 8 Albumin 4 CPK 42 Troponin <0.01 BNP 35 UA: SG 1.01, pH 6. No other significant findings on UA. CBC: WBC 5.4 H/H 14.1/42.7 Plt 294 - Diagnostic Findings Chest x-ray, 07/20/16 at 1805, viewed personally: EXAM: CHEST 2 VIEW COMPARISON: 06/18/2016 and earlier FINDINGS: The heart size and mediastinal contours are within normal limits. Both lungs are clear. The visualized skeletal structures are unremarkable. IMPRESSION: No active cardiopulmonary disease. Head CT, 07/20/16 at 1742: EXAM: CT HEAD WITHOUT CONTRAST TECHNIQUE: Contiguous axial images were obtained from the base of the skull through the vertex without intravenous contrast. COMPARISON: None. FINDINGS: Brain: No evidence of acute infarction, hemorrhage, extra-axial collection, ventriculomegaly, or mass effect. Vascular: No hyperdense vessel or unexpected calcification. Skull: Negative for fracture or focal lesion. Sinuses/Orbits: No acute findings. Other: None. IMPRESSION: Negative noncontrast head CT. - Assessment (1) CVA (cerebral vascular accident) I63.9 - CEREBRAL INFARCTION, UNSPECIFIED Acute Present on Admission: Yes Qualifiers: CVA mechanism: unspecified Qualified Code(s): I63.9 - Cerebral infarction, unspecified HISTORY of previous episode, 02/2016: Admitted to the hospital to rule out CVA due to her multiple neurologic abnormalities as mentioned in the history of present illness. She was seen in the hospital Physical therapy as well occupational therapy. She walked quite well, and was recommended to pursue outpatient physical therapy if she felt it was necessary, but she has been cleared to return home safely today. Results of MRI, 2D cardiac echo as well as carotid Dopplers were reviewed with the patient. MRI of the brain is up not normal, but not significantly change from last MRI in October. She was told to follow up with Dr. Marti as an outpatient to discuss further need for surveillance. Discussed with the patient today rationale for secondary prevention. Questions were answered. UPDATE 07/21/16: Rule out CVA. Events of today have some features consistent with CVA and some consistent with seizures and post-ictal sequelae. Will proceed with CVA workup but also evaluate and treat seizure. Plan was discussed in detail with the patient's daughter and patient. Plan: CVA order set. MRI head and Ultrasound of carotids in the AM. NPO until speech therapy evaluation. Physical therapy and occupational therapy evaluations. Neuro checks q 4 hours. Telemetry. Add daily aspirin but will need to explore further due to possible allergy. Add statin. Check lipid levels. NOTE: TPA NOT GIVEN. NO TPA DUE TO: Patient outside time window and had witnessed seizure. NIH stroke score too low, and symptoms are resolving. (2) Huey's paralysis (postepileptic) G83.84 - HUEY'S PARALYSIS (POSTEPILEPTIC) Acute Present on Admission: Yes Events of today have some features consistent with CVA and some consistent with seizures and post-ictal sequelae. Plan: Will proceed with CVA workup but also evaluate and treat seizure. Patient will need physical and occupational therapy evaluation and treatment. (3) Left-sided weakness M62.81 - MUSCLE WEAKNESS (GENERALIZED) Acute Present on Admission: Yes Daughter described seeing symptoms on the right side at home. Patient reports that she had weakness on her left upper extremity. The left upper extremity weakness is mostly resolved. Plan: Continue CVA workup and seizure workup. PT/OT consult. (4) Breakthrough seizure G40.919 - EPILEPSY, UNSP, INTRACTABLE, WITHOUT STATUS EPILEPTICUS Acute Present on Admission: Yes Had several events, including in the emergency department waiting room and her emergency department room, that were witnessed and appeared to be partial seizures. Patient does take gabapentin at home. No further events after IV Keppra was administered. Plan: IV Keppra started. Will continue IV bid, then transition to PO. Seizure precautions. Neuro checks. (5) Dyspnea R06.00 - DYSPNEA, UNSPECIFIED Acute Present on Admission: Yes Mild. Is mostly resolved. Plan: Monitor O2 sats. Provide support as needed. NPO until speech therapy evaluation. Case Care Discussed with: Patient, Family, Nursing Staff, Other (Emergency department physician) Total Time: 60 min NIH Stroke Scale Initial Evaluation Level of Consciousness: Arousable LOC- Question: Answers Both Correctly LOC Commands: Both Task Correctly Best Gaze: Normal Visual: No Visual Loss Facial Palsy: Minor Paralysis Motor Arm LEFT: No Drift Motor Arm RIGHT: No Drift Motor Leg LEFT: No Drift Motor Leg RIGHT: No Drift Limb Ataxia: Absent Sensory: Normal Best Language: No Aphasia Dysarthria: Normal Extinction and Inattention: No Abnormality (Neglect) Score: 2out of42
[2016-07-21] MEDS ORDERED: ENOXAPARIN 40 MG/0.4 ML PFS SQ SCH (08:00)
[2016-07-21] MEDS ORDERED: GUAIFEN 100 MG-DEXTROMETH 10 MG PER 5 ML PO PRN (08:03)
[2016-07-21] MEDS ORDERED: BENZONATATE 100 MG PERLES PO PRN (08:03)
[2016-07-21] MEDS ORDERED: TEMAZEPAM 15 MG CAP PO PRN (08:03)
[2016-07-21] MEDS ORDERED: ACETAMINOPHEN 325 MG SUPP PR PRN (08:03)
[2016-07-21] MEDS ORDERED: Aluminum;Magnesium;Simethicone 30 ML UDC PO PRN (08:03)
[2016-07-21] MEDS ORDERED: ACETAMINOPHEN 325 MG/TAB TABLET PO PRN (08:03)
[2016-07-21] MEDS ORDERED: BISACODYL 5 MG TAB PO PRN (08:03)
[2016-07-21] MEDS ORDERED: PROMETHAZINE 25 MG/ML VIAL IV PRN (08:03)
[2016-07-21] MEDS ORDERED: SENNA CONCENTRATE TAB PO PRN (08:03)
[2016-07-21] MEDS ORDERED: ONDANSETRON HCL 4 MG/2 ML VIAL IV PRN (08:03)
[2016-07-21] MEDS: NS 1,000 ML IV SCH ×3 (08:35→20:19)
[2016-07-21] MEDS: GABAPENTIN 300 MG CAP PO SCH ×3 (08:38→22:33)
[2016-07-21] MEDS: PANTOPRAZOLE 40 MG TAB PO SCH (08:39)
[2016-07-21] MEDS ORDERED: Non-Formulary Medication ITEM (Omeprazole 20 MG) PO SCH (09:00)
[2016-07-21] MEDS ORDERED: Non-Formulary Medication ITEM (Cholecalciferol (Vitamin D3) [Vitamin D3] 1,000 UNIT) PO SCH (09:00)
[2016-07-21 09:28] LABS: AUTOMATED BASOPHIL 1.7 % (0-2); AUTOMATED EOSINOPHIL 1.9 % (0-5); AUTOMATED LYMPH 43.3 % (17-44); AUTOMATED MONOCYTE 9.9 % (3-10); AUTOMATED NEUTROPHIL 43.2 % (45-76); MPV 7.4 fL (7.4-10.4)
[2016-07-21 09:49] LABS: BLOOD UREA NITROGEN 10 MG/DL (7-17); CALC CORRECTED 10.1 MG/DL (8.4-10.2); CALCIUM 9.3 MG/DL (8.4-10.2); CALCULATED OSMOLALITY 264 MOs/Kg (270-290); CHLORIDE 102 mEq/L (98-107); GLUCOSE 84 MG/DL (70-99); SODIUM LEVEL 138 mEq/L (137-146); TOTAL PROTEIN 6.8 G/DL (6.3-8.2)
--- NOTE | 2016-07-21 10:58 | DIRPT ---
CLINICAL DATA: Left facial droop and numbness for 1 day. Evaluate for CVA EXAM: MRI HEAD WITHOUT AND WITH CONTRAST TECHNIQUE: Multiplanar, multiecho pulse sequences of the brain and surrounding structures were obtained without and with intravenous contrast. CONTRAST: 20 cc MultiHance intravenous COMPARISON: 02/15/2016 FINDINGS: Calvarium and upper cervical spine: No focal marrow signal abnormality. Orbits: Negative. Sinuses and Mastoids: Clear. Brain: Nonenhancing 7 mm area of restricted diffusion in the posterior limb left internal capsule along lateral left thalamus margin. This is likely acute infarct, which correlates with the history, a demyelinating focus is an additional consideration given the pattern of white matter disease, demographics, and other signs of intracranial inflammation. There are linear FLAIR hyperintensities in the bilateral cerebral white matter. Stable fairly smooth diffuse dural thickening. History of abnormal left seventh cranial nerve enhancement by IAC protocol MRI, but appear symmetric today. When allowing for dural thickening which extends into the internal auditory canals, with superimposed intravascular enhancement, there is no evidence of canalicular or cisternal nerve enhancement. Patient has history of left parotidectomy for cancer in close follow-up, preferably with IAC/trigeminal protocol, is needed. Thickened appearance of the pituitary gland with upper convexity, initially concerning for hyperplasia or microadenoma, but given the diffuse dural thickening is more likely congestive or inflammatory. Appearance is stable. IMPRESSION: 1. Sub cm diffusion abnormality in the lateral left thalamus/ posterior limb internal capsule consistent with acute infarct. Demyelinating focus is a differential consideration, as above. 2. Chronic dural thickening with enlarged pituitary. As previously noted this could be from intracranial hypotension, granulomatous pachymeningitis, or chronic infection. If not previously performed, recommend workup for sarcoidosis. Consider LP with opening pressure. Electronically Signed By: Sacha Blair M.D. On: 07/21/2016 10:55
[2016-07-21] MEDS: VITAMINS, MULTIPLE CAP PO SCH (11:50)
[2016-07-21] MEDS: CHOLECALCIFEROL 1000 UNITS TAB PO SCH (11:50)
[2016-07-21] MEDS: FOLIC ACID 1 MG TAB PO SCH (11:51)
[2016-07-21] MEDS ORDERED: Vaccine Screening Complete SCH (15:00)
--- NOTE | 2016-07-21 15:41 | DIRPT ---
CLINICAL DATA: Altered mental status and history of previous stroke EXAM: BILATERAL CAROTID DUPLEX ULTRASOUND TECHNIQUE: Melendez scale imaging, color Doppler and duplex ultrasound were performed of bilateral carotid and vertebral arteries in the neck. COMPARISON: 02/14/2016 FINDINGS: Criteria: Quantification of carotid stenosis is based on velocity parameters that correlate the residual internal carotid diameter with NASCET-based stenosis levels, using the diameter of the distal internal carotid lumen as the denominator for stenosis measurement. The following velocity measurements were obtained: RIGHT ICA: 104/30 cm/sec CCA: 103/17 cm/sec SYSTOLIC ICA/CCA RATIO: 1.0 DIASTOLIC ICA/CCA RATIO: 0.7 ECA: 82 cm/sec LEFT ICA: 120/28 cm/sec CCA: 93/16 cm/sec SYSTOLIC ICA/CCA RATIO: 1.3 DIASTOLIC ICA/CCA RATIO: 1.7 ECA: 44 cm/sec RIGHT CAROTID ARTERY: Preliminary grayscale images show no significant plaque formation. The waveforms, velocities and flow velocity ratios show no evidence focal hemodynamically significant stenosis. RIGHT VERTEBRAL ARTERY: Antegrade LEFT CAROTID ARTERY: The grayscale imaging demonstrates no significant atherosclerotic plaque. The waveforms, velocities and flow velocity ratios show no evidence of focal hemodynamically significant stenosis. LEFT VERTEBRAL ARTERY: Antegrade IMPRESSION: No evidence of focal hemodynamically significant stenosis. Electronically Signed By: Kiran Pierce M.D. On: 07/21/2016 15:38
[2016-07-21] MEDS: ATORVASTATIN 40 MG TAB PO SCH (17:59)
[2016-07-21] MEDS ORDERED: ENOXAPARIN 60 MG/0.6 ML PFS SQ SCH (18:00)
[2016-07-22 05:21] LABS: LDL (calc.) 49.4 MG/DL (<100); VLDL (calc.) 20.6 MG/DL (5-40)
[2016-07-22 05:58] VITALS: BMI 35.0
[2016-07-22] MEDS: PANTOPRAZOLE 40 MG TAB PO SCH (06:26)
[2016-07-22] MEDS: GABAPENTIN 300 MG CAP PO SCH ×3 (06:26→21:05)
[2016-07-22] MEDS: NS 1,000 ML IV SCH (11:31)
[2016-07-22] MEDS: CHOLECALCIFEROL 1000 UNITS TAB PO SCH (11:32)
[2016-07-22] MEDS: FOLIC ACID 1 MG TAB PO SCH (11:32)
[2016-07-22] MEDS: VITAMINS, MULTIPLE CAP PO SCH (11:32)
[2016-07-22 11:51] VITALS: TEMP 97.8
--- NOTE | 2016-07-22 16:18 | GENMEDPROG ---
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 Subjective Note: Patient has hx of trigeminal neuralgia, as well as prior hx of seizures, but is now having more breakthrough - Physical Examination Vital Signs and I&O: Last Vital Signs Temp 97.8 F 07/22/16 11:31 Pulse 80 07/22/16 14:55 Resp 18 07/22/16 11:31 BP 133/92 07/22/16 11:31 Pulse Ox 97 07/22/16 11:31 Oxygen Pulse Oxygen Saturation 97 O2 Device Room Air Oxygen Flow Rate Fraction of Inspired Oxygen ( FIO2) Intake & Output 07/19/16 07/20/16 07/21/16 07/22/16 23:59 23:59 23:59 23:59 Intake Total 815 855 Balance 815 855 Patient's weight 95.345 kg 95.527 kg General: Alert, Oriented x3 HEENT: Normal, PERRLA, EOMI, Anicteric Sclera, Mucous membr. moist/pink Neck: Non-tender, Full range of motion, Normal Trachea alignment, Normal inspection Lymphatics: Normal (no adenopathy) Respiratory: Normal - CTA (BBS clear to auscultation without adventitious sounds ) Cardiovascular: Regular rate and rhythm, Normal S1, Normal S2 GI: Normal bowel sounds, Soft, Non tender, No masses Extremities/Musculoskeletal: Normal pulses, DJD, FROM Skin: Warm,Dry and Intact, No breakdown Neurological: Normal speech, Strength at 5/5 X4 ext, Normal tone, Reflexes 2+, Cranial Nerves (REPORTS NUMBNESS L SIDE OF FACE, MILD L SIDED FACIAL PARESIS) Psych/Mental Status: Normal Affect, Cooperative Lab/DI/Studies Reviewed: Laboratory Tests 07/22/16 04:25 Triglycerides 103 Cholesterol 112 LDL Cholesterol, Calc 49.4 VLDL Cholesterol, Calc 20.6 HDL Cholesterol 42.0 Cholesterol/HDL Ratio 2.7 MRI HEAD: IMPRESSION: 1. Sub cm diffusion abnormality in the lateral left thalamus/ posterior limb internal capsule consistent with acute infarct. Demyelinating focus is a differential consideration, as above. 2. Chronic dural thickening with enlarged pituitary. As previously noted this could be from intracranial hypotension, granulomatous pachymeningitis, or chronic infection. If not previously performed, recommend workup for sarcoidosis. Consider LP with opening pressure. Electronically Signed By: Sacha Blair M.D. On: 07/21/2016 10:55 - Assessment (1) CVA (cerebral vascular accident) Acute I63.9 - CEREBRAL INFARCTION, UNSPECIFIED Qualifiers: CVA mechanism: unspecified Qualified Code(s): I63.9 - Cerebral infarction, unspecified Comment/Plan: HISTORY of previous episode, 02/2016: Admitted to the hospital to rule out CVA due to her multiple neurologic abnormalities as mentioned in the history of present illness. She was seen in the hospital by Physical therapy as well occupational therapy. She walked quite well, and was recommended to pursue outpatient physical therapy if she felt it was necessary, but she has been cleared to return home safely today. Results of MRI, 2D cardiac echo as well as carotid Dopplers were reviewed with the patient. MRI of the brain is up not normal, but not significantly change from last MRI in October. She was told to follow up with Dr. Marti as an outpatient to discuss further need for surveillance. Discussed with the patient today rationale for secondary prevention. Questions were answered. UPDATE 07/21/16: Rule out CVA. Events of today have some features consistent with CVA and some consistent with seizures and post-ictal sequelae. Will proceed with CVA workup but also evaluate and treat seizure. Plan was discussed in detail with the patient's daughter and patient. Plan: CVA order set. MRI head and Ultrasound of carotids in the AM. CONTINUE: Physical therapy and occupational therapy evaluations. Neuro checks q 4 hours. Telemetry. Add daily aspirin but will need to explore further due to possible allergy. Add statin. Check lipid levels. NOTE: TPA NOT GIVEN. NO TPA DUE TO: Patient outside time window and had witnessed seizure. NIH stroke score too low, and symptoms are resolving. (2) Breakthrough seizure Acute G40.919 - EPILEPSY, UNSP, INTRACTABLE, WITHOUT STATUS EPILEPTICUS Comment/Plan: Had several events, including in the emergency department waiting room and her emergency department room, that were witnessed and appeared to be partial seizures. Patient does take gabapentin at home. No further events after IV Keppra was administered. Plan: IV Keppra started. Will transition to PO. Seizure precautions. Neuro checks. (3) Left-sided weakness Acute M62.81 - MUSCLE WEAKNESS (GENERALIZED) Comment/Plan: Daughter described seeing symptoms on the right side at home. Patient reports that she had weakness on her left upper extremity. The left upper extremity weakness is mostly resolved. Plan:Continue CVA workup and seizure workup. PT/OT consult. (4) Dyslipidemia Acute E78.5 - HYPERLIPIDEMIA, UNSPECIFIED Comment/Plan: Plan: Increased pravastatin to 40 mg p.o. daily. Additional Notes: Discussed w/ Dr. Guidry. Case Care Discussed with: Patient, Consultants, Nursing Staff Education/Counseling Given To: Patient Education/Counseling Given Regarding: Diagnosis, Treatment, Prognosis
--- NOTE | 2016-07-22 17:16 | PCM.NEUCO ---
Consultation Date: 07/22/16 Requesting Physician: Dia Weaver Consulting Doctor: Archie Guidry Reason For Consult: Stroke/TIA, Seizures - Past Medical and Surgical History Cardiac History: Reports: Coronary Artery Disease, Hypertension, Heart Attack, Cardiac Catheterization (angioplasty and may have had some stents placed but not sure about stents), Hypercholesterolemia Respiratory History: Reports: Asthma (RESOLVED) GI/ History: Reports: Gastroesophageal Reflux (Used to be on Nexium but stopped it), Diverticulosis Systemic History: Reports: Cancer (head and neck) Musculoskeletal History: Reports: Arthritis (RIGHT WRIST AND SHOULDER) Psychological History: Reports: Anxiety. Denies: Depression, Substance Use Disorder Neurological History: Reports: Cerebrovascular Accident, Seizures, Other ( trigeminal neuralgia facial nerve palsey) Past Surgical History: Reports: Cardiac Catheterization (angioplasty and may have had some stents placed but not sure about stents), Tonsillectomy/ Adnoidectomy, Other (recent tonsillectomy due to recurrent cancer, BTl, multiple cysts from UExt). Denies: Hysterectomy Allergies Penicillins Allergy (Intermediate, Verified 07/20/16 17:14) Edema-Generalized bacitracin Allergy (Verified 07/20/16 17:14) Hives* swelled up turned red zinc Allergy (Verified 07/20/16 17:14) Hives* Home Medications Folic Acid 1 mg PO DAILY 10/15/15 Cholecalciferol (Vitamin D3) [Vitamin D3] 1,000 unit PO DAILY 12/16/15 Multivitamin [Multivitamins] 1 cap PO DAILY 12/16/15 Metoprolol Tartrate [Lopressor] 12.5 mg PO BID #60 tablet 12/17/15 Omeprazole [Prilosec] 20 mg PO DAILY 02/13/16 Atorvastatin Calcium [Lipitor] 40 mg PO DAILY@1800 #90 tablet 02/15/16 Gabapentin [Neurontin] 600 mg PO TID 05/05/16 Aspirin (Enteric Coated) [Halfprin] 81 mg PO HS 06/18/16 CYANOCOBALAMIN (Vitamin B-12) [Vitamin B-12] 1,000 mcg IM .MONTHLY 06/18/16 - Social History Travel Outside of [place] in the Last 3 Months?: No Smoking Status: Never smoker Social History: Denies: Substance Use Disorder - Family History Reports: Hypertension (MOTHER, SIBLINGS), Diabetes, Cancer (ovarian, prostate, colon-mother, breast, throat), Cardiac Disorders (MOTHER, BROTHER). Denies: Stroke - Review of Systems Constitutional: Fatigue Eyes: Blurred Vision Ears: negative: Drainage Nose: negative: Abrasion Mouth: No Symptoms Reported Throat/Neck: No Symptoms Reported Respiratory: No Symptoms Reported Cardiovascular: No Symptoms Reported Gastrointestinal: No Symptoms Reported Genitourinary: No Symptoms Reported Neurological: Headache, Seizure, Weakness Musculoskeletal:: No Symptoms Reported Integumentary: No Symptoms Reported Allergic/Immunologic: No Symptoms Reported Hematologic: No Symptoms Reported Endocrine: No Symptoms Reported Psychiatric: No Symptoms Reported - Physical Exam Vital Signs: Initial Vitals Temperature 98.1 F 07/20/16 21:30 Pulse Rate 77 07/20/16 21:30 Respiratory Rate 25 H 07/20/16 21:30 Blood Pressure 146/90 07/20/16 21:30 Pulse Oxygen Saturation 92 07/20/16 21:30 Constitutional: No apparent distress Oriented to: Time, Person, Place - HEENT Head: Normal Eye: Normal Oropharynx: Normal TMJ: Normal Nose: No Symptoms Reported. negative: Abrasion Respiratory: negative: Accessory Muscle Use Cardiovascular: Normal - GI Tenderness: Non tender Rectal Exam: Deferred - Exam Deferred: Yes - Musculoskeletal Back: negative: CVA Tenderness Extremities: Normal Spine: non-tender - Integumentary Skin: Warm, Dry - Mental Status Orientation: Time, Person, Place Speech: Fluent, Clear Coginitive: Normal Motor Function: Abnormal (left facial paralysis, right facial droop but mild) Affect: Normal Thought: Coherent Perception: Normal - Sensory Sensory: Normal - Reflex Reflexes: Diminished 1+: Right Bicep, Left Bicep, Left Tricep, Right Tricep, Left Brachioradialis, Right Brachioradialis, Left Patellar, Right Patellar, Left Achilles, Right Achilles - Coordination Finger to Nose Test: Normal Performance Alternate Nose to Finger Test: Normal Performance - Diagnostic Findings FINDINGS: Calvarium and upper cervical spine: No focal marrow signal abnormality. Orbits: Negative. Sinuses and Mastoids: Clear. Brain: Nonenhancing 7 mm area of restricted diffusion in the posterior limb left internal capsule along lateral left thalamus margin. This is likely acute infarct, which correlates with the history, a demyelinating focus is an additional consideration given the pattern of white matter disease, demographics, and other signs of intracranial inflammation. There are linear FLAIR hyperintensities in the bilateral cerebral white matter. Stable fairly smooth diffuse dural thickening. History of abnormal left seventh cranial nerve enhancement by IAC protocol MRI, but appear symmetric today. When allowing for dural thickening which extends into the internal auditory canals, with superimposed intravascular enhancement, there is no evidence of canalicular or cisternal nerve enhancement. Patient has history of left parotidectomy for cancer in close follow-up, preferably with IAC/trigeminal protocol, is needed. Thickened appearance of the pituitary gland with upper convexity, initially concerning for hyperplasia or microadenoma, but given the diffuse dural thickening is more likely congestive or inflammatory. Appearance is stable. IMPRESSION: 1. Sub cm diffusion abnormality in the lateral left thalamus/ posterior limb internal capsule consistent with acute infarct. Demyelinating focus is a differential consideration, as above. 2. Chronic dural thickening with enlarged pituitary. As previously noted this could be from intracranial hypotension, granulomatous pachymeningitis, or chronic infection. If not previously performed, recommend workup for sarcoidosis. Consider LP with opening pressure. Carotid doppler results: RIGHT CAROTID ARTERY: Preliminary grayscale images show no significant plaque formation. The waveforms, velocities and flow velocity ratios show no evidence focal hemodynamically significant stenosis. RIGHT VERTEBRAL ARTERY: Antegrade LEFT CAROTID ARTERY: The grayscale imaging demonstrates no significant atherosclerotic plaque. The waveforms, velocities and flow velocity ratios show no evidence of focal hemodynamically significant stenosis. LEFT VERTEBRAL ARTERY: Antegrade IMPRESSION: No evidence of focal hemodynamically significant stenosis. Case Care Discussed with: Patient, Consultants Plan: 60 yoaaf well known to me from treatment for facial palsey, trigeminal neuralgia and recent development of seizures. Pt was to see me in my office 3 days ago but she had a series of breakthrough seizures and went to the ED. She was admitted and Keppra added. We had increased her neurontin, which we were using for TGN, to 600mg tid for seizure prevention but that obviously was not working. Since the Keppra was added, she has not had further episodes. She is amnestic for the seizure events. MRI of the brain showed a small diffusion positive lesion in left lateral thalamus/Posterior IC that is likely a stroke. Her carotid dopplers are clear. She was taking an 81mg aspirin so we decided to add plavix. She is already on lipitor. The MRI also noted the meningeal thickening which we saw before and I thought it was due to her XRT treatment for her parotic tumor treatment. However, we also see some pituitary fullness and the question of neurosarcoidosis was raised. I had a long discussion with Ms. Mattson and we decided to refer her [facility] neurology for evaluation to see if she needs a full sarcoid workup including LP and leptomeningeal biopsy. I'll see her back next week after she gets out of the hospital here. PT/ST/OT for her stroke.
[2016-07-22] MEDS ORDERED: ENOXAPARIN 40 MG/0.4 ML PFS SQ SCH (18:00)
[2016-07-22] MEDS: ATORVASTATIN 40 MG TAB PO SCH (18:26)
[2016-07-22] MEDS: CLOPIDOGREL 75 MG TAB PO SCH (18:26)
[2016-07-23] MEDS: NS 1,000 ML IV SCH ×2 (02:52→11:54)
[2016-07-23] MEDS: GABAPENTIN 300 MG CAP PO SCH ×2 (05:44→11:55)
[2016-07-23] MEDS: PANTOPRAZOLE 40 MG TAB PO SCH (05:45)
[2016-07-23] MEDS: CLOPIDOGREL 75 MG TAB PO SCH (08:38)
[2016-07-23] MEDS ORDERED: LEVETIRACETAM 250 MG TAB PO SCH (09:00)
--- NOTE | 2016-07-23 10:19 | PCM.DCS92 ---
- Final/Secondary Discharge Diagnosis (1) CVA (cerebral vascular accident) Acute I63.9 - CEREBRAL INFARCTION, UNSPECIFIED Present on Admission: Yes unspecified I63.9 - Cerebral infarction, unspecified Comment: HISTORY of previous episode, 02/2016: Admitted to the hospital to rule out CVA due to her multiple neurologic abnormalities as mentioned in the history of present illness. She was seen in the hospital by Physical therapy as well occupational therapy. She walked quite well, and was recommended to pursue outpatient physical therapy if she felt it was necessary, but she has been cleared to return home safely today. Results of MRI, 2D cardiac echo as well as carotid Dopplers were reviewed with the patient. MRI of the brain is up not normal, but not significantly change from last MRI in October. She was told to follow up with Dr. Marti as an outpatient to discuss further need for surveillance. Discussed with the patient today rationale for secondary prevention. Questions were answered. UPDATE 07/21/16: Rule out CVA. Events of today have some features consistent with CVA and some consistent with seizures and post-ictal sequelae. Will proceed with CVA workup but also evaluate and treat seizure. Plan was discussed in detail with the patient's daughter and patient. Plan: CVA order set. MRI head and Ultrasound of carotids in the AM. CONTINUE: Physical therapy and occupational therapy evaluations. Neuro checks q 4 hours. Telemetry. Add daily aspirin but will need to explore further due to possible allergy. Add statin. Check lipid levels. NOTE: TPA NOT GIVEN. NO TPA DUE TO: Patient outside time window and had witnessed seizure. NIH stroke score too low, and symptoms are resolving. (2) Breakthrough seizure Acute G40.919 - EPILEPSY, UNSP, INTRACTABLE, WITHOUT STATUS EPILEPTICUS Present on Admission: Yes Comment: Had several events, including in the emergency department waiting room and her emergency department room, that were witnessed and appeared to be partial seizures. Patient does take gabapentin at home. No further events after IV Keppra was administered. Plan: IV Keppra started. Will transition to PO. Seizure precautions. Neuro checks. (3) Left-sided weakness Acute M62.81 - MUSCLE WEAKNESS (GENERALIZED) Present on Admission: Yes Comment: Daughter described seeing symptoms on the right side at home. Patient reports that she had weakness on her left upper extremity. The left upper extremity weakness is mostly resolved. Plan:Continue CVA workup and seizure workup. PT/OT consult. (4) Dyslipidemia Acute E78.5 - HYPERLIPIDEMIA, UNSPECIFIED Present on Admission: Yes Comment: Plan: Increased pravastatin to 40 mg p.o. daily. Discharge Disposition: Home Discharge Condition: Improved Cognitive Discharge Status: Unimpaired Fuctional Discharge Status: Independent Forms: Excuse Note Physician Follow up/Referrals: Archie Guidry MD [Staff Physician] - 1-2 days Becky Reyes MD [Primary Care Provider] - One Week New Prescriptions: Clopidogrel Bisulfate [Plavix] 75 mg PO DAILY #30 tablet Levetiracetam [Keppra] 1,000 mg PO BID #60 tablet Pantoprazole Sodium [Protonix] 40 mg PO 0600 #30 tablet Discharge Home Medication List Folic Acid 1 mg PO DAILY 10/15/15 [History Confirmed 07/20/16 Last Taken ] Cholecalciferol (Vitamin D3) [Vitamin D3] 1,000 unit PO DAILY 12/16/15 [History Confirmed 07/20/16 Last Taken 07/20/16] Multivitamin [Multivitamins] 1 cap PO DAILY 12/16/15 [History Confirmed Last Taken 07/20/16] Metoprolol Tartrate [Lopressor] 12.5 mg PO BID #60 tablet 12/17/15 [Rx Confirmed 07/20/16 Last Taken 07/20/16] Atorvastatin Calcium [Lipitor] 40 mg PO DAILY@1800 #90 tablet 02/15/16 [Rx Confirmed 07/20/16 Last Taken 07/19/16] Gabapentin [Neurontin] 600 mg PO TID 05/05/16 [History Confirmed 07/20/16 Last Taken 07/20/16] Aspirin (Enteric Coated) [Halfprin] 81 mg PO HS 06/18/16 [History Confirmed 05/26 Last Taken 07/19/16] CYANOCOBALAMIN (Vitamin B-12) [Vitamin B-12 (cyanocobalamin)] 1,000 mcg IM .MONTHLY 06/18/16 [History Confirmed 07/20/16 Last Taken 1 Week Ago] Clopidogrel Bisulfate [Plavix] 75 mg PO DAILY #30 tablet 07/23/16 [Rx Last Taken Unknown] Levetiracetam [Keppra] 1,000 mg PO BID #60 tablet 07/23/16 [Rx Last Taken Unknown] Pantoprazole Sodium [Protonix] 40 mg PO 0600 #30 tablet 07/23/16 [Rx Last Taken Unknown] O2 Device: Room Air Diet at Discharge: Heart Healthy, Diabetic Activity: No Driving Call Office For: Worsening Symptoms Discontinue use of:: Alcohol, All Types of Tobacco - DC Summary Notes HPI/Notes: The patient is a 60 yo woman who presented for a second emergency department visit overnight with left sided weakness and other issues. Summary: Within the last 24 hours, the patient has not been well. She was brought to the emergency department 07/20/16 in the afternoon, was evaluated and thought to have a seizure, was given prescription with plan for her to follow up this morning with the neurologist, Dr. Guidry. She went home and had altered mental status and other symptoms, so she returned back to the emergency department overnight on 07/20/16 for further evaluation. Hospitalist service has been asked to evaluate the patient for admission this morning. The patient is somnolent, so her daughter provides most of the history. In the afternoon 07/20/16, the patient was not acting right. She was not focusing , and had droop on one side of her face, and was just staring into space, not interacting. The patient was brought to the emergency department and discharged as noted above. The patient was then at home. Around 8:30 pm she ate a salad and then suddenly she was standing up in the kitchen and did not look right. She leaned over toward the garbage can, and her daughter thought maybe she had nausea and was going to vomit in the trash can. Instead, the patient just kept leaning forward and was about to fall completely forward onto the floor, but her daughter caught her. Her right side of her mouth seemed to droop - about 1 minute or so. She was not talking. She was not focusing her eyes on anything, like a blank stare. She may have had a bit of brief drooling. She was not interacting. The family placed her onto the chair, and she was leaning toward the right side. She did not lift her RIGHT arm all the way.Only one of her eyes were blinking; just her left one was blinking. She was very sleepy, and the patient reports she was very tired. Then later she was more awake. She was clearly not herself, so the patient was taken back to the emergency department. While the patient was in the in the waiting room, she had another episode. She was looking at her daughter but was not saying anything. She had very mild facial droop, and she was staring but not interacting. Then she was licking her lips. She became somnolent again; the episode resolved but she was still sleepy. Then she had another episode in the emergency department bed. She had gotten up and walked, but on the way back she stumbled when she tried to walk. She was then eating sherbert and suddenly just stopped, wasn't talking or interactive again. She had facial droop again and she was leaning to the right side. She fell asleep afterward. Staff had witnessed these events. The daughter noted that here in the emergency department the patient is disoriented and doesn't know what the date is. She could not understand what to do for the commands. She said she felt tired. Onset: First episode of symptoms 07/20/16 in the afternoon. Subsequent episodes began 07/20/16 around 8:30 pm. Duration: intermittent. Location: generalized symptoms. Character: altered mental status/disoriented with facial droop, difficulty walking, and leaning to one side. Alleviated by: Nothing. Exacerbated by: Nothing. Associated Symptoms: Altered mental status with staring spells, during which she was not speaking or responding to her family member. Facial droop. Almost fell over as she leaned toward the trash can. Difficulty walking with leaning to one side (probably the right side). [place] lips. Left arm weakness per patient. Daughter saw weakness in right arm. Somnolence. Disorientation. One eye blinking. No numbness. Fatigue. No coughing or choking on food. No chest pain. No fever or chills. Mild shortness of breath. No wheezing. After episodes, the patient seemed very tired and was sleeping. Other symptoms as noted above. Treatments: none at home except usual medications. Reports of events from the emergency staff included: 07/21/16 nurse report from early this morning: nurse noted that patient ambulated in [place] without difficulty and went back to the room, but then shortly thereafter the patient's grandson called staff into room and stated "something is wrong with my grandma". Nurse check the patient's vital signs, which were normal. She observed the patient to be alert and clenching an emesis bag. No shaking observed, and patient family denies patient was shaking. Patient will not speak to staff. Hospital Course Note:: Discharge summary on patient named ELI MILLER admitted to [facility] on 07/21/16 by Dmitry Swann MD. Date of discharge is [07/23/16]. She was admitted and evaluated for both stroke and breakthrough seizures. Her MRI did confirm a small acute infarct in the lateral thalamic region. However it became clear that she is having partial complex seizures as well, so she was started on IV Keppra, and then transitioned to PO Keppra, since she was already on gabapentin and this was not controlling her symptoms. Her neurologist, Dr. Guidry was consulted and made aware of the situation. He did see her in consult and will follow her in clinic also. There is some question of whether her tumor is returning or she has progressive scar tissue forming in the area of her previous surgery. She has been advised to follow-up at [facility] [place] within 2-3 weeks after discharge. Code: 42906 (>30min.) - Physical Exam Vital Signs: Last Vital Signs Temp 98.0 F 07/23/16 07:30 Pulse 83 07/23/16 10:00 Resp 19 07/23/16 07:30 BP 141/46 L 07/23/16 07:30 Pulse Ox 94 07/23/16 07:30 Oxygen Pulse Oxygen Saturation 94 O2 Device Room Air Oxygen Flow Rate Fraction of Inspired Oxygen ( FIO2) Constitutional: No apparent distress, Alert Oriented to: Time, Person, Place - HEENT Head: Normal Eye: Normal Oropharynx: Normal Tympanic Membrane: Normal TMJ: Normal Nose: No Symptoms Reported. negative: Abrasion - Respiratory/Cardiovascular Respiratory: Normal - CTA (BBS clear to auscultation without adventitious sounds ) Cardiovascular: Normal - GI Auscultation: Normal Palpation: Normal Tenderness: Non tender Rectal Exam: Deferred - Musculoskeletal Back: negative: CVA Tenderness Extremities: Normal - Integumentary Skin: Warm, Dry Lymphatics: Normal (no adenopathy) - Neurologic Memory Impaired: Short-term Motor Function: Abnormal (slight weakness left upper extremity) Cranial Nerve: 5 (numbness & stinging on left side of face), 7 (mild facial paresis L,) Mood Description: Normal Thought: Coherent Perception: Normal
[2016-07-23 11:24] VITALS: BP 117/85; TEMP 97.8
[2016-07-23] MEDS: FOLIC ACID 1 MG TAB PO SCH (11:54)
[2016-07-23] MEDS: VITAMINS, MULTIPLE CAP PO SCH (11:55)
[2016-07-23] MEDS: CHOLECALCIFEROL 1000 UNITS TAB PO SCH (11:55)
[2016-07-23 12:51] VITALS: PULSE 88
== END 2016-07-23 14:42 | disposition home or self-care (01) | DRG 65 ==
LOC: ED 21:24 → EDINP 07-21 06:53 → PCU 07-21 16:29
PROVIDERS: ADMIT Internal Medicine; ATTEND Family Medicine
DX: I63.9 Cerebral infarction, unspecified (principal); G81.94 Hemiplegia, unspecified affecting left nondominant side; G40.919 Epilepsy, unspecified, intractable, without status epilepticus; G83.84 Todd's paralysis (postepileptic); E78.5 Hyperlipidemia, unspecified; I25.10 Atherosclerotic heart disease of native coronary artery without angina pectoris; I10 Essential (primary) hypertension; I25.2 Old myocardial infarction; Z98.61 Coronary angioplasty status; E78.00 Pure hypercholesterolemia, unspecified; K21.9 Gastro-esophageal reflux disease without esophagitis; M19.90 Unspecified osteoarthritis, unspecified site; Z85.89 Personal history of malignant neoplasm of other organs and systems; Z86.73 Personal history of transient ischemic attack (TIA), and cerebral infarction without residual deficits; Z88.0 Allergy status to penicillin; Z88.8 Allergy status to other drugs, medicaments and biological substances; Z79.82 Long term (current) use of aspirin; Z79.899 Other long term (current) drug therapy; R06.00 Dyspnea, unspecified; R29.702 NIHSS score 2
CPT/HCPCS: 70553; 80053; 80061; 85025; 85651; 93880; 96365; 96372; 97162; 97165; 99285; A9577; J1650; J1953; J3490; J7030